=== PATIENT | male | born 1990 | race African-American/Black ===

== ENCOUNTER 2021-03-02 03:03 | Emergency (ER) | payer MEDICAID ==
[~2021-03-02] VITALS: Ht 188 cm; Wt 145.4 kg
[2021-03-02 07:05] VITALS: BP 131/73
[2021-03-02 07:25] LABS: BASOPHILS % (AUTO) 0.3 % (0-1); EOSINOPHILS % (AUTO) 0.7 % (0-6); HEMATOCRIT 40.2 % (42.0-52.0); HEMOGLOBIN 13.1 g/dl (14.0-17.9); LYMPHOCYTES # (AUTO) 2.3 X10'3 (1.1-4.8); LYMPHOCYTES % (AUTO) 31.3 % (21-51); MEAN CORPUSCULAR HEMOGLOBIN 24.8 PG (27.0-31.0); MEAN CORPUSCULAR HGB CONC 32.5 g/dL (33.0-36.5); MEAN CORPUSCULAR VOLUME 76.2 FL (78-98); MONOCYTES # (AUTO) 0.7 X10'3 (0-0.9); MONOCYTES % (AUTO) 9.6 % (2-12); NEUTROPHILS # (AUTO) 4.2 X10'3 (1.8-7.7); NEUTROPHILS % (AUTO) 58.1 % (42-75); PLATELET COUNT 223 X10'3 (140-440); RED BLOOD COUNT 5.27 X10'6 (4.70-6.10); RED CELL DISTRIBUTION WIDTH 13.7 % (11.5-14.5); WHITE BLOOD COUNT 7.3 X10'3 (4.5-11.0)
[2021-03-02 07:34] LABS: ANION GAP 11 (8-16); BLOOD UREA NITROGEN 17 MG/DL (7-18); BUN/CREATININE RATIO 17.7 (5.4-32.0); CALCIUM 9.3 MG/DL (8.5-10.1); CHLORIDE 105 MMOL/L (99-107); CREATININE 0.96 MG/DL (0.60-1.10); GLUCOSE 93 MG/DL (70-104); POTASSIUM 3.7 MMOL/L (3.5-5.1); SODIUM 143 MMOL/L (135-145); TOTAL CARBON DIOXIDE 27.5 MMOL/L (24-32); eGFR > 90 ML/MIN
--- NOTE | 2021-03-02 07:35 | NUR ---
MRI SCREENING FORM FAXED AT THIS TIME.
--- NOTE | 2021-03-02 08:21 | NUR ---
NOTIFIED DR SCHULTZ THAT MRI PERSONEL[ JORGE ]STATED THAT PT WILL NOT BE ABLE TO GET MRI BECAUSE OF OVERWEIGHT . PER MD CALL CT PERSONNEL TO ENSURE IF THEY CAN DO CT ON THE PT .SPOKE TO CHARO AT CT SCAN,SAID ITS OKAY .NOTIFIED THE PROVIDER.
--- NOTE | 2021-03-02 08:40 | NUR ---
DR SCHULTZ AT BEDSIDE.
--- NOTE | 2021-03-02 09:30 | NUR ---
NOTIFIED DR SCHULTZ REGARDING PT POST VOID BLD SCAN.
[2021-03-02] MEDS ORDERED: HYDR-3965 PO (11:09)
[2021-03-02] MEDS ORDERED: IBUP-1984 PO (11:09)
[2021-03-02] MEDS: ibuprofen tablet 400 MG TABLET PO ONE (11:13)
[2021-03-03] MEDS ORDERED: HYDR-3965 PO (02:23)
[2021-03-03] MEDS ORDERED: LIDO700A32 TOP (02:29)
== END 2021-03-02 11:16 | disposition home or self-care (01) ==
LOC: ER 03:04 → EDBD 03:04 → ER 11:16
DX: M54.50 Low back pain, unspecified (principal); R32 Unspecified urinary incontinence; Z88.1 Allergy status to other antibiotic agents; Z79.899 Other long term (current) drug therapy
CPT/HCPCS: 36415; 80048; 85025; 99283; 99284